=== PATIENT | male | born 1935 | race Asian ===

== ENCOUNTER 2019-08-13 16:40 | Emergency (ER) | payer SELFPAY ==
[~2019-08-13] VITALS: Ht 160 cm; Wt 44.0 kg
--- NOTE | 2019-08-13 16:46 | NUR ---
TAKEN TO BED 7 VIA PERSONAL W/C
[2019-08-13 16:54] VITALS: BP 122/76
--- NOTE | 2019-08-13 17:19 | NUR ---
XRAY AT BEDSIDE
--- NOTE | 2019-08-13 17:30 | NUR ---
84 Y/O MALE BIB DAUGHTER C/O FEVER/DRY COUGH X3 DAYS. PT DENIES ANY SOB/CP. RESP EVEN AND UNLABORED. LUNG SOUNDS DIMINISHED IN BILAT BASES. PT DENIES ANY CONTACT WITH COVID PTS. SKIN COOL/DRY. AAOX4, MANDARIN SPEAKING
[2019-08-13 17:49] VITALS: BP 117/69
--- NOTE | 2019-08-13 17:49 | NUR ---
Patient discharged with v/s stable. Written and verbal after care instructions given and explained REGARDING PNEUMONIA. Patient alert, oriented and verbalized understanding of instructions.WHEELCHAIRED TO CAR BY DAUGHTER. All questions addressed prior to discharge. ID band removed. Patient advised to follow up with PMD. Rx of MOTRIN AND AZITHROMYOCIN given. Patient educated on indication of medication including possible reaction and side effects. Opportunity to ask questions provided and answered. DAUGHTER VERBALIZED UNDERSTANDING
== END 2019-08-13 17:49 | disposition home or self-care (01) ==
LOC: MED 16:40
DX: J18.9 Pneumonia, unspecified organism (principal); Z86.73 Personal history of transient ischemic attack (TIA), and cerebral infarction without residual deficits
CPT/HCPCS: 71045; 99283; Q0092